=== PATIENT | female | born 1965 | race African-American/Black ===

== ENCOUNTER 2021-01-15 12:51 | Inpatient (IN) ==
[2021-01-15 13:11] LABS: Basophils % 0.5 % (0.0-0.8); Eosinophils # 0.2 10*3/uL (0.0-0.87); Eosinophils % 2.3 % (0.00-10.9); Hematocrit 39.1 VOL% (35.7-47.0); Hemoglobin 12.6 GM/DL (12.0-16.0); Immature Granulocytes % 0.3 %; Immature Granulocytes Absolute 0.02 #; Lymphocytes # 3.3 10*3/uL (1.4-4.0); Mean Corpuscular HGB Conc 32.2 GM/DL (32-36); Mean Corpuscular Volume 89.9 FL (87-102); Mean Platelet Volume 9.9 FL (9.6-12.0); Neutrophils % 46.9 % (38.7-73.9); Platelet Count 239 T/CUMM (130-400); Red Blood Count 4.35 MC/CUMM (3.8-5.5); Red Cell Distribution Width 13.1 % (9.3-17.3); White Blood Count 7.9 T/CUMM (4-12)
[2021-01-15 13:45] LABS: Alanine Aminotransferase 23 U/L (13-56); Albumin 3.8 G/DL (3.4-5.0); Alkaline Phosphatase 84 U/L (45-117); Aspartate Amino Transferase 19 U/L (0-37); Bilirubin,Total < 0.39 MG/DL (0.20-1.00); Blood Urea Nitrogen 19 MG/DL (7-18); Calcium 11.2 MG/DL (8.5-10.1); Carbon Dioxide 27 MMOL/L (21-32); Estimated Glom Filtration Rate 101 ML/MIN; Glucose 92 MG/DL (74-106); Osmolality,Calculated 280.4 MOS/KG (273-304); Potassium 4.2 MMOL/L (3.5-5.1); Sodium 140 MMOL/L (136-145); Total Protein 7.3 G/DL (6.4-8.2)
[2021-01-15] MEDS ORDERED: ASPIRIN 325 MG TABLET PO STA (13:58)
[2021-01-15] MEDS ORDERED: GLUCAGON 1 MG VIAL IM PRN (15:04)
[2021-01-15] MEDS ORDERED: DEXTROSE 50% 25 GM/50 ML SYRINGE IV PRN (15:11)
[2021-01-15 15:15] LABS: INR 0.9; PT Patient Result 10.7 SECS (10.5-12.0)
[2021-01-15 15:24] LABS: Albumin 3.8 G/DL (3.4-5.0); Bilirubin,Total 0.8 MG/DL (0.20-1.00); Calcium 11.1 MG/DL (8.5-10.1); Osmolality,Calculated 278.5 MOS/KG (273-304); Potassium 3.8 MMOL/L (3.5-5.1); Total Protein 7.5 G/DL (6.4-8.2)
[2021-01-15] MEDS ORDERED: FUROSEMIDE 40 MG/4 ML VIAL IV ONE (15:45)
[2021-01-15] MEDS ORDERED: SODIUM CHLORIDE 0.9% 1,000 ML IV ONE (15:47)
[2021-01-15] MEDS: PANTOPRAZOLE 40 MG TABLET PO SCH (15:59)
[2021-01-15] MEDS ORDERED: hydrALAZINE 20 MG/1 ML VIAL IV PRN (15:59)
[2021-01-15] MEDS: SODIUM CHLORIDE 0.9% 1,000 ML IV SCH (17:23)
[2021-01-15] MEDS: ENOXAPARIN 40 MG/0.4 ML SYRINGE SUBCUT SCH (17:46)
[2021-01-15 19:25] LABS: Parathyroid Hormone Intact 221.4 PG/ML (18.4-80.1)
[2021-01-15] MEDS ORDERED: INFLUENZA VIRUS VACCINE 0.5 ML SYRINGE IM ONE (21:00)
[2021-01-15 22:54] LABS: Calcium 10.6 MG/DL (8.5-10.1); Osmolality,Calculated 286.8 MOS/KG (273-304); Potassium 3.5 MMOL/L (3.5-5.1)
[2021-01-16] MEDS: SODIUM CHLORIDE 0.9% 1,000 ML IV SCH ×4 (02:46→22:40)
[2021-01-16] MEDS ORDERED: ACETAMINOPHEN 325 MG TABLET PO PRN (04:29)
[2021-01-16 05:38] LABS: Albumin 3.3 G/DL (3.4-5.0); Bilirubin,Total 0.6 MG/DL (0.20-1.00); Calcium 10.8 MG/DL (8.5-10.1); Osmolality,Calculated 283.3 MOS/KG (273-304); Potassium 4.4 MMOL/L (3.5-5.1); Total Protein 6.7 G/DL (6.4-8.2)
[2021-01-16 06:52] LABS: Basophils % 0.4 % (0.0-0.8); Eosinophils # 0.2 10*3/uL (0.0-0.87); Eosinophils % 2.4 % (0.00-10.9); Hematocrit 37.9 VOL% (35.7-47.0); Hemoglobin 11.9 GM/DL (12.0-16.0); Immature Granulocytes % 0.3 %; Immature Granulocytes Absolute 0.02 #; Lymphocytes % 42.7 % (21.3-54.2); Mean Corpuscular HGB Conc 31.4 GM/DL (32-36); Mean Corpuscular Volume 91.1 FL (87-102); Mean Platelet Volume 10.8 FL (9.6-12.0); Monocytes % 8.7 % (1.7-12.7); Neutrophils % 45.5 % (38.7-73.9); Platelet Count 224 T/CUMM (130-400); Red Blood Count 4.16 MC/CUMM (3.8-5.5); Red Cell Distribution Width 13.2 % (9.3-17.3)
[2021-01-16 07:25] LABS: Risk Ratio 2.23; VLDL Cholesterol 9.6 MG/DL
[2021-01-16] MEDS: PANTOPRAZOLE 40 MG TABLET PO SCH (09:10)
[2021-01-16 09:48] LABS: Total Protein (Chem) 7.5 G/DL (6.4-8.3)
[2021-01-16 09:50] LABS: Albumin (SPE) 4.8 G/DL (3.2-5.3); Albumin (SPE) Rel % 63.5 %; Alpha 1 (SPE) 0.2 G/DL (0.1-0.4); Alpha 1 (SPE) Rel % 2.3 %; Alpha 2 (SPE) 0.7 G/DL (0.4-1.0); Alpha 2 (SPE) Rel % 8.9 %; Beta (SPE) 0.7 G/DL (0.5-1.1); Beta (SPE) Rel % 9.2 %; Gamma (SPE) 1.2 G/DL (0.7-1.7); Gamma (SPE) Rel % 16.1 %
[2021-01-16] MEDS ORDERED: MAGNESIUM SULF RIDER 2 GM/50 ML PREMIX IV PRN (10:21)
[2021-01-16] MEDS ORDERED: POTASSIUM CHLORIDE RIDER 10 MEQ/100 ML PREMIX IV PRN (10:21)
[2021-01-16] MEDS ORDERED: LIDOCAINE 1% 20 ML VIAL ONE (11:16)
[2021-01-16] MEDS ORDERED: NITROGLYCERIN DRIP 0 MG/0 ML BOTTLE IV ONE (11:16)
[2021-01-16] MEDS ORDERED: VERAPAMIL 5 MG/2 ML VIAL ONE ×2 (11:17→12:34)
[2021-01-16] MEDS ORDERED: diphenhydrAMINE CAP 50 MG CAPSULE PO ONE (11:30)
[2021-01-16] MEDS ORDERED: DIAZEPAM 5 MG TABLET PO ONE (11:30)
[2021-01-16] MEDS ORDERED: HYDROmorphone 2 MG/1 ML VIAL ONE (11:44)
[2021-01-16] MEDS ORDERED: MIDAZOLAM 2 MG/2 ML VIAL ONE (11:44)
[2021-01-16] MEDS ORDERED: HEPARIN 5,000 UNIT/1 ML VIAL ONE (12:25)
[2021-01-16 12:28] LABS: Barbiturates Screen,Urine Negative (Negative); Benzodiazepines Screen,Urine Negative (Negative); Cannabinoid Screen,Urine Negative (Negative); Opiate Screen,Urine Negative (Negative); Phencyclidine Screen,Urine Negative (Negative)
[2021-01-16] MEDS ORDERED: VERAPAMIL SR 120 MG TABLET PO ONE (14:03)
[2021-01-16 18:07] VITALS: BP 138/82
[2021-01-16] MEDS: ENOXAPARIN 40 MG/0.4 ML SYRINGE SUBCUT SCH (18:10)
[2021-01-16] MEDS: METOPROLOL TARTRATE 25 MG TABLET PO SCH (20:38)
[2021-01-16] MEDS ORDERED: ROSUVASTATIN 20 MG TABLET PO SCH (21:00)
[2021-01-17 04:46] LABS: Total Protein 24 Hr Ur Result 128 MG/24HR (0-149.1); Total Volume,Urine 1600 ML (400-2000)
[2021-01-17 05:21] LABS: Basophils % 0.3 % (0.0-0.8); Eosinophils # 0.2 10*3/uL (0.0-0.87); Eosinophils % 2.9 % (0.00-10.9); Hematocrit 37.3 VOL% (35.7-47.0); Hemoglobin 11.7 GM/DL (12.0-16.0); Immature Granulocytes % 0.3 %; Immature Granulocytes Absolute 0.02 #; Lymphocytes # 3.3 10*3/uL (1.4-4.0); Lymphocytes % 45.8 % (21.3-54.2); Mean Corpuscular HGB Conc 31.4 GM/DL (32-36); Mean Corpuscular Volume 91.9 FL (87-102); Mean Platelet Volume 10.1 FL (9.6-12.0); Monocytes % 9.1 % (1.7-12.7); Neutrophils % 41.6 % (38.7-73.9); Platelet Count 224 T/CUMM (130-400); Red Blood Count 4.06 MC/CUMM (3.8-5.5); Red Cell Distribution Width 13.2 % (9.3-17.3); White Blood Count 7.2 T/CUMM (4-12)
[2021-01-17 05:44] LABS: Calcium 10.6 MG/DL (8.5-10.1); Osmolality,Calculated 282.1 MOS/KG (273-304); Potassium 4.1 MMOL/L (3.5-5.1)
[2021-01-17] MEDS ORDERED: VERAPAMIL SR 120 MG TABLET PO SCH (09:00)
[2021-01-17] MEDS ORDERED: ASPIRIN EC 81 MG TABLET PO SCH (09:00)
[2021-01-17] MEDS: SODIUM CHLORIDE 0.9% 1,000 ML IV SCH (09:37)
[2021-01-17] MEDS: METOPROLOL TARTRATE 25 MG TABLET PO SCH (09:37)
[2021-01-17] MEDS: PANTOPRAZOLE 40 MG TABLET PO SCH (09:37)
[2021-01-19 09:45] LABS: 24 Hr Protein (Bench) 128 MG/24HR (0-149.1)
== END 2021-01-17 15:12 | disposition home or self-care (01) | DRG 281 ==
LOC: N.ED 12:51 → N.EDINP 12:51 → SUATTDRO 15:04 → N.TELES 18:14
PROVIDERS: ADMIT Internal Medicine; ATTEND Emergency Medicine
PROC: CLCCHCL (ICD-10-PCS; 2021-01-16 12:15)